=== PATIENT | female | born 1955 | race Caucasian/White ===

== ENCOUNTER → 2020-09-25 11:39 | Outpatient (CLI) | payer MEDICARE, SELFPAY ==
--- NOTE | ~2020-09-25 | XR_ITS ---
EXAMINATION: XR knee RT 3V DATE: 09/25/2020 12:02 INDICATION: Right knee pain. TECHNIQUE: 3 views of right knee were obtained. COMPARISON: Right knee radiographs 04/05/2020, 06/28/2019 FINDINGS: There is a total right knee arthroplasty with patellar resurfacing in near-anatomic alignme nt. No fracture. No periprosthetic lucency to suggest loosening or infection. There is a small knee j oint effusion. IMPRESSION: 1. Total right knee arthroplasty in near-anatomic alignment. 2. Small right knee joint effusion. Reviewed, dictated and finalized at location A. [employer]
== END ==
PROVIDERS: PCP Pediatrics; Visit Provider Pediatrics
DX: M25.461 Effusion, right knee (principal)
CPT/HCPCS: 73562

== ENCOUNTER → 2021-08-14 14:04 | Outpatient (CLI) | payer MEDICARE, SELFPAY ==
--- NOTE | ~2021-08-14 | XR_ITS ---
EXAMINATION: XR shoulder RT min 2V DATE: 08/14/2021 14:27 INDICATION: Right shoulder pain TECHNIQUE: AP internally and externally rotated, AP oblique externally rotated and axillary views of the right shoulder were obtained. COMPARISON: None FINDINGS: Normal alignment. No fracture. Glenohumeral joint is normal. Mild acromioclavicular joint osteoarthr itis. Small calcified nodule at the right apex consistent with old granulomatous disease. Soft tissue s are unremarkable. IMPRESSION: Mild right acromioclavicular osteoarthritis. Reviewed, dictated and finalized at location A. [employer]
== END ==
PROVIDERS: PCP Nurse Practitioner Family; Visit Provider Nurse Practitioner Family
DX: M25.511 Pain in right shoulder (principal); M19.011 Primary osteoarthritis, right shoulder
CPT/HCPCS: 73030